=== PATIENT | male | born 1930 | race Caucasian/White ===

== ENCOUNTER 2019-03-07 14:43 | Emergency (ER) | payer MEDICARE, OTHER ==
[2019-03-07] MEDS ORDERED: Nitroglycerin 0.4 MG Tab.SL SL ONE (14:59)
[2019-03-07] MEDS ORDERED: Sodium Chloride 0.9% 10 ML Syringe FLUSH PRN (15:00)
[2019-03-07] MEDS: Aspirin 81 MG Tab.Chew PO ONE (15:02)
[2019-03-07] MEDS: Morphine 2 MG/ML Syringe IVPUSH ONE (15:25)
[2019-03-07 15:36] VITALS: BP 130/79; PULSE 90
--- NOTE | 2019-03-07 16:07 | CRLCR ---
Indication: Chest pain. Technique: Single AP portable view of the chest. Comparison: None Findings: The heart is normal in size. Bibasilar atelectasis and/or infiltrates are identified. No pleural effusion or pneumothorax is identified. Impression: Bibasilar atelectasis and/or infiltrates Dictated by Candida Aggarwal MD @ Mar 07 2019 4:06PM Signed by Dr. Candida Aggarwal @ Mar 07 2019 4:06PM
[2019-03-07] MEDS: Amiodarone 150 MG/3 ML SDV IVPUSH ONE (16:10)
[2019-03-07] MEDS: EPINEPHrine 1:10,000 1 MG/10 ML Syringe IV ONE ×6 (16:14→16:44)
[2019-03-07] MEDS: Atropine 0.1 MG/ML 10 ML Syringe IVPUSH ONE (16:17)
[2019-03-07] MEDS: Atropine 0.1 MG/ML 10 ML Syringe IV ONE (16:28)
[2019-03-07] MEDS ORDERED: Sodium Chloride 0.9% 1,000 ML IV SCH (16:33)
[2019-03-07] MEDS: EPINEPHrine 1 MG in Dextrose 5% in Water 100 ML IV SCH ×2 (16:45)
--- NOTE | 2019-03-07 17:09 | EDM.PDOC ---
ED HPI GENERAL MEDICAL PROBLEM - General Chief Complaint: Chest Pain Stated Complaint: NEAU[place],CHEST PAIN Time Seen by Provider: 03/07/19 15:40 Source of Information: Reports: Patient History Limitations: Reports: No Limitations - History of Present Illness INITIAL COMMENTS - FREE TEXT/NARRATIVE: pt went to the clinic to be seen He had been snow blowing and he had chest pressure. He was not sweaty. He does state this pain was different than usual. In obtaining further history he had been dealing with alot of heart burn and he had been seen at the clinic and he had been placwed on prilosec. The heart burn was definitely new. He had snow blowed all morning and at about 1 pm he developed the chest pressure and went to the clinc. He arrived unanouned from the clinic with the chest pressure. Onset: Today, Other ( at 1 pm. ) Duration: Hour(s): Location: Reports: Chest Associated Symptoms: Reports: Chest Pain, Other (pt was mildly sob but his chest xray was unremarkable. ) Anterior Chest Pain Score (Numeric/FACES): 4 - Related Data Allergies Allergy/AdvReac Type Severity Reaction Status Date / Time No Known Allergies Allergy Verified 11/28/16 08:52 Home Meds: Home Meds Arginine [l-Arginine] 500 mg PO DAILY 01/18/16 [History] Multivitamin [Multivitamins] 1 each PO DAILY 01/18/16 [History] Tadalafil [Cialis] 2.5 mg PO ASDIRECTED 01/18/16 [History] Ranitidine HCl [Zantac 75] 75 mg PO DAILY 11/03/16 [History] Past Medical History HEENT History: Reports: Hard of Hearing Gastrointestinal History: Reports: GERD Genitourinary History: Reports: Prostate Disorder Musculoskeletal History: Reports: Back Pain, Chronic, Osteoarthritis, Other ( See Below) Other Musculoskeletal History: bilat knee and hip pain. Low back pain. R hand neuropathy. pinched nerves in back - Past Surgical History HEENT Surgical History: Reports: Tonsillectomy Social & Family History - Tobacco Use Smoking Status *Q: Never Smoker - Caffeine Use Caffeine Use: Reports: Coffee, Tea - Recreational Drug Use Recreational Drug Use: No ED ROS GENERAL - Review of Systems Review Of Systems: See Below Constitutional: Reports: No Symptoms HEENT: Reports: No Symptoms Respiratory: Reports: Shortness of Breath, Other (mild. ) Cardiovascular: Reports: Chest Pain, Other (pt described chest pressure . He was very pale appearing. He was not sweaty. ) Endocrine: Reports: No Symptoms GI/Abdominal: Reports: Other (pt gave the history of extensive heart burn earlier) : Reports: No Symptoms Musculoskeletal: Reports: No Symptoms Skin: Reports: No Symptoms ED EXAM, GENERAL - Physical Exam Exam: See Below Free Text/Narrative:: pt was a very pale appearing uncomfortable appearing pt. He was given asa on arrival. He normally is not on asa. Exam Limited By: No Limitations General Appearance: Alert, Anxious, Moderate Distress Ears: Normal TMs Nose: Normal Inspection Throat/Mouth: Normal Inspection Head: Atraumatic Neck: Normal Inspection Respiratory/Chest: No Respiratory Distress Cardiovascular: Regular Rate, Rhythm, Other ( Ekg showed some minor lateral changes. This was after 3 hours of some discomfort on and off. ) GI/Abdominal: Soft, Non-Tender (Male) Exam: Deferred Rectal (Males) Exam: Deferred Back Exam: Normal Inspection Extremities: Normal Inspection Course - Vital Signs Last Recorded V/S: Last Vital Signs Temp 35.5 C 03/07/19 15:35 Pulse 90 03/07/19 15:50 Resp 14 03/07/19 15:50 BP 130/79 03/07/19 15:35 Pulse Ox 92 L 03/07/19 15:50 - Orders/Labs/Meds Labs: Laboratory Tests 03/07/19 03/07/19 03/07/19 Range/Units 15:03 15:03 15:03 WBC 8.7 (4.5-11.0) K/uL RBC 4.56 (4.30-5.90) M/uL Hgb 8.8 L D (12.0-15.0) g/dL Hct 30.8 L (40.0-54.0) % MCV 68 L (80-98) fL MCH 19 L (27-31) pg MCHC 29 L (32-36) % Plt Count 275 (150-400) K/uL Neut % (Auto) 62 (36-66) % Lymph % (Auto) 27 (24-44) % Coles % (Auto) 10 H (2-6) % Eos % (Auto) 2 (2-4) % Baso % (Auto) 0 (0-1) % D-Dimer, Quantitative (0.0-400.0) ng/mL Puncture Site ABG pH (7.350-7.450) ABG pCO2 (35.0-42.0) mmHg ABG pO2 (75.0-100.0) mmHg ABG HCO3 (22.0-26.0) mmol/L ABG Total CO2 (23.0-27.0) mmol/L ABG O2 Saturation (95.0-98.0) % ABG O2 Content (15.0-23.0) %vol ABG Base Excess mm/L ABG Hemoglobin (13.5-18.0) g/dL ABG Oxyhemoglobin % ABG Carboxyhemoglobin (0.0-1.6) % ABG Methemoglobin % Waqas Test O2 Delivery Device Sodium 139 L (140-148) mmol/L Potassium 3.9 (3.6-5.2) mmol/L Chloride 104 (100-108) mmol/L Carbon Dioxide 22 (21-32) mmol/L Anion Gap 16.9 H (5.0-14.0) mmol/L BUN 23 H (7-18) mg/dL Creatinine 1.4 H (0.8-1.3) mg/dL Est Cr Clr Drug Dosing 37.66 mL/min Estimated GFR (MDRD) 48 L (>60) Glucose 153 H (74-106) mg/dL Calcium 9.1 (8.5-10.1) mg/dL Total Bilirubin 0.5 (0.2-1.0) mg/dL AST 23 (15-37) U/L ALT 31 (12-78) U/L Alkaline Phosphatase 66 (46-116) U/L Troponin I 0.036 (0.000-0.056) ng/mL Total Protein 7.4 (6.4-8.2) g/dL Albumin 3.6 (3.4-5.0) g/dL Globulin 3.8 H (2.3-3.5) g/dL Albumin/Globulin Ratio 1.0 L (1.2-2.2) 03/07/19 03/07/19 03/07/19 Range/Units 15:03 16:25 16:25 WBC (4.5-11.0) K/uL RBC (4.30-5.90) M/uL Hgb (12.0-15.0) g/dL Hct (40.0-54.0) % MCV (80-98) fL MCH (27-31) pg MCHC (32-36) % Plt Count (150-400) K/uL Neut % (Auto) (36-66) % Lymph % (Auto) (24-44) % Coles % (Auto) (2-6) % Eos % (Auto) (2-4) % Baso % (Auto) (0-1) % D-Dimer, Quantitative 336 (0.0-400.0) ng/mL Puncture Site Lt radial ABG pH 7.274 L (7.350-7.450) ABG pCO2 32.7 L (35.0-42.0) mmHg ABG pO2 224.0 H (75.0-100.0) mmHg ABG HCO3 14.7 L (22.0-26.0) mmol/L ABG Total CO2 14.2 L (23.0-27.0) mmol/L ABG O2 Saturation 99.1 H (95.0-98.0) % ABG O2 Content 12.8 L (15.0-23.0) %vol ABG Base Excess -10.8 mm/L ABG Hemoglobin 8.9 L (13.5-18.0) g/dL ABG Oxyhemoglobin 97.7 % ABG Carboxyhemoglobin 0.7 (0.0-1.6) % ABG Methemoglobin 0.7 % Waqas Test Pass O2 Delivery Device Ventilator Sodium (140-148) mmol/L Potassium (3.6-5.2) mmol/L Chloride (100-108) mmol/L Carbon Dioxide (21-32) mmol/L Anion Gap (5.0-14.0) mmol/L BUN (7-18) mg/dL Creatinine (0.8-1.3) mg/dL Est Cr Clr Drug Dosing mL/min Estimated GFR (MDRD) (>60) Glucose (74-106) mg/dL Calcium (8.5-10.1) mg/dL Total Bilirubin (0.2-1.0) mg/dL AST (15-37) U/L ALT (12-78) U/L Alkaline Phosphatase (46-116) U/L Troponin I 0.179 H* (0.000-0.056) ng/mL Total Protein (6.4-8.2) g/dL Albumin (3.4-5.0) g/dL Globulin (2.3-3.5) g/dL Albumin/Globulin Ratio (1.2-2.2) Meds: Medications Discontinued Medications Generic Name Dose Route Start Last Admin Trade Name Gladys PRN Reason Stop Dose Admin Aspirin 324 mg 03/07/19 14:58 03/07/19 15:02 Aspirin PO 03/07/19 14:59 324 mg ONETIME ONE Administration Amiodarone HCl 450 mg/ 250 mls @ 33.33 mls/hr 03/07/19 16:30 Dextrose/Water IV ASDIRECTED SONIA Protocol 1 MG/MIN Epinephrine HCl 1 mg/ Dextrose 101 mls @ 50.85 mls/hr 03/07/19 17:00 /Water IV TITRATE SONIA Protocol 0.1 MCG/KG/MIN Morphine Sulfate 2 mg 03/07/19 15:17 03/07/19 15:25 Morphine IVPUSH 03/07/19 15:18 2 mg ONETIME ONE Administration Nitroglycerin 0.4 mg 03/07/19 14:59 Nitrostat SL 03/07/19 15:00 ONETIME ONE Sodium Chloride 10 ml 03/07/19 15:00 Saline Flush FLUSH ASDIRECTED PRN Keep Vein Open - Re-Assessments/Exams Free Text/Narrative Re-Assessment/Exam: 03/07/19 17:08 pt has a trop that is in normal range. His chest pain was only at a 1-2. He had a second ekg ordred and a second trop was ordered. [facility] cardiology was contacted and they did want the second ekg and trop on the pt. j 03/07/19 18:36 Just as we were getting ready to do the second ekg the pt had a sudden arrest , Francisco and I had been in the room just before that and he was much more comfortable with a pain level of a 1. Cpr was immediatly started cardiac massage and 2 ivs were started. He was given the scheduled epi. He was in a v fib . He was shocked at leat 4 times and a organized rhythm was obtained. His o2 sats were between 70 and 80 and he was intubated. He did stay with the rhythm with a rate of 38 which did not perfuse. At this point we did attempt to get ahold of his family. He was given a bolus of amiroderone 300mg and a drip was started. Atropine was give to a total of 1 mg with the slow rate. He never did perfuse with the rhythm. A epinephrine drip was started but this did not help. His family arrived and the code was called. 03/07/19 18:42 03/09/19 07:21 during the code a trop was obtained which was .1760. A ddimer had been obtained and that was not significantly elevated. 03/09/19 07:23 Departure - Departure Time of Disposition: 20:05 Disposition: 20 Clinical Impression: Acute [place] Referrals: Chasity King MD [Primary Care Provider] - Forms: ED Department Discharge Care Plan Goals: pt . The farm tractor mechanic Father Pietro was called. The family did spend time with him. Sepsis Event Note - Evaluation Sepsis Screening Result: No Definite Risk - Focused Exam Date Exam was Performed: 03/09/19 Time Exam was Performed: 07:21
--- NOTE | 2019-03-07 17:26 | PCM.SN ---
- Free Text/Narrative Note: Mr. Beaver was an 88-year-old gentleman who presented to the emergency department with chest pain. Pain seemed to improve initially and he reported feeling fairly comfortable. Shortly after that assessment he experienced cardiac arrest. I assisted Dr. Gaspar in management of the patient during CPR. He initially was noted to be in ventricular fibrillation and was defibrillated immediately. He was also given a bolus dose of amiodarone and started on a continuous infusion of amiodarone. After defibrillation he was noted to be in a junctional escape rhythm with no palpable pulse. He was given regular doses of IV epinephrine every 5 minutes during CPR. He was intubated by anesthesia service with variable saturations during the code. Initial end- tidal CO2 was in the mid 20s and by the time the code was called had dropped in the range to of 10-13. He did recurrent ventricular fibrillation and received a second and third defibrillation. Because of slow rhythm with the junctional escape he did receive 2 doses of atropine. A continuous infusion of epinephrine was initiated. Despite these interventions he remained for the most part in ventricular escape rhythm with no palpable pulse. After 1 hour of CPR the code was terminated and the patient was declared . 1 hour of critical care time was spent in the direct care and management of this patient in the emergency department.
== END 2019-03-07 20:02 | disposition expired ==
LOC: JP.ED 14:43
DX: I21.9 Acute myocardial infarction, unspecified (principal); K21.9 Gastro-esophageal reflux disease without esophagitis; M19.90 Unspecified osteoarthritis, unspecified site; Z79.899 Other long term (current) drug therapy
CPT/HCPCS: 36415; 36600; 71045; 80053; 82803; 84484; 85025; 85379; 92950; 93005; 93010; 96365; 96375; 99291-25; A9270-GY; J0171; J0282; J0461; J2270; J7060